=== PATIENT | female | born 1945 | race Caucasian/White ===

== ENCOUNTER 2016-09-21 08:59 | Emergency (ER) | payer MEDICARE, BC ==
--- NOTE | 2016-09-28 18:56 | ER ---
ADMIT: 09/21/2016 RM/LOC: ER [facility] MR#: [id number] [address] [id number] [place] [address] [place] [address] Emergency Room Report SEX: F AGE: 71 : 1945 DATE: 09/22/2016 ADDENDUM: CHIEF COMPLAINT: Left flank pain and nausea. HISTORY OF PRESENT ILLNESS: Symptoms started about on Saturday. She said, she has vomited Saturday and , not today, but she just feels very nauseous. She is not able to eat anything. COURSE IN THE EMERGENCY ROOM: I did a renal CT, it shows right adnexal cyst, but no obvious renal stones on the left side. UA shows 22 red blood cells, 1+ leukocyte esterase. CBC is normal. CMP is pending at this time. I am going to send her home with [facility], having her followup regarding findings on CT. CLINICAL IMPRESSION: 1. Urinary tract infection. 2. Right adnexal cyst. GERDA Pedroza / Chip Cool MD / margarita JOB #: [id number] CC: Chip Cool MD, Attending Physician Yulisa Lopez MD, Family Physician
== END 2016-09-21 12:55 | disposition home or self-care (01) ==
LOC: ER 08:59
DX: N39.0 Urinary tract infection, site not specified (principal); N83.8 Other noninflammatory disorders of ovary, fallopian tube and broad ligament; I10 Essential (primary) hypertension; Z90.49 Acquired absence of other specified parts of digestive tract; Z79.899 Other long term (current) drug therapy